=== PATIENT | male | born 1970 ===

== ENCOUNTER 2021-10-27 18:50 | Emergency (ER) | payer SELFPAY ==
[2021-10-27 18:56] VITALS: BP 131/84
[2021-10-27] MEDS ORDERED: ACETAMINOPHEN 325 MG TAB PO ONE (18:58)
--- NOTE | 2021-10-27 19:40 | Emergency Department Report ---
HPI - General Chief Complaint: Pain General Time Seen by Provider: 10/27/21 19:04 - HPI HPI: MSE 5 The patient is a 50-year-old male present with chief complaint of cold symptoms and body aches. For the past week the patient is rhinorrhea, nasal congestion and occasional cough. Yesterday patient developed body aches and bilateral ear pain. Patient denies loss of sense of smell or taste. Patient has been vaccinated against Covid receiving his second Pfizer vaccine approximately 3 months ago. When asked if there have been any sick contacts family member states that her youngest child received a vaccination for Covid and then developed similar symptoms that is the only known "sick contact." ED Past Medical Hx - Past Medical History Previous Medical History?: No - Surgical History Past Surgical History?: No - Family History Family history: no significant - Social History Smoking Status: Never Smoker Substance Use Type: None (Denies illicit drug use), Alcohol (Rarely) - Medications Home Medications: Home Medications Medication Instructions Recorded Confirmed Last Taken Type Cyclobenzaprine [Flexeril] 10 mg PO TID PRN #10 tablet 10/27/21 Unknown Rx Ibuprofen [Motrin 800 MG tab] 800 mg PO Q8HR PRN #20 tablet 10/27/21 Unknown Rx Oxymetazoline 0.05% [Vicks Sinex] 1 spray NS Q12H #1 bottle 10/27/21 Unknown Rx ED Review of Systems ROS: Stated complaint: BODYACHES AND PAIN Other details as noted in HPI Constitutional: no symptoms reported Eyes: denies: eye pain ENT: ear pain Respiratory: cough Cardiovascular: as per HPI Endocrine: no symptoms reported Gastrointestinal: denies: abdominal pain Genitourinary: denies: dysuria Musculoskeletal: myalgia Neurological: headache Physical Exam - Physical Exam Vital Signs: Vital Signs 10/27/21 18:55 Temperature 100.6 F H Pulse Rate 102 H Respiratory 20 Rate Blood Pressure 131/84 [Right] O2 Sat by Pulse 97 Oximetry Physical Exam: GENERAL: The patient is well-developed well-nourished male sitting on stretcher not appearing to be in acute distress. [] HEENT: Normocephalic. Atraumatic. Extraocular motions are intact. Patient has moist mucous membranes. TMs clear bilateral NECK: Supple. No meningitic signs are noted. Trachea midline CHEST/LUNGS: Clear to auscultation. There is no respiratory distress noted. HEART/CARDIOVASCULAR: Regular. There is no tachycardia. There is no gallop rub or murmur. ABDOMEN: Abdomen is soft, nontender. Patient has normal bowel sounds. There is no abdominal distention. SKIN: There is no rash. There is no edema. There is no diaphoresis. NEURO: The patient is awake, alert, and oriented. The patient is cooperative. The patient has no focal neurologic deficits. The patient has normal speech. GCS 15 MUSCULOSKELETAL: There is no evidence of acute injury. ED Course Vital Signs 10/27/21 18:55 Temperature 100.6 F H Pulse Rate 102 H Respiratory 20 Rate Blood Pressure 131/84 [Right] O2 Sat by Pulse 97 Oximetry ED Medical Decision Making - Lab Data Laboratory Tests 10/27/21 Unknown Influenza A (Rapid) Positive A Influenza B (Rapid) Negative - Radiology Data Radiology results: report reviewed (Chest x-ray), image reviewed (Chest x-ray) interpreted by me: Chest x-ray-no definite focal infiltrates, no pneumothorax [facility] [address] [place] [address] XRay Report Signed Patient: REFUGIO ALEXANDER MR#: [id number] : 1970 Acct:[id number] Age/Sex: 50 / M ADM Date: 10/27/21 Loc: ED Attending Dr: Ordering Physician: ROCHELLE LONG Date of Service: 10/27/21 Procedure(s): XR chest routine 2V Accession Number(s): [id number] cc: ROCHELLE LONG Fluoro Time In Minutes: CHEST 2 VIEWS INDICATION / CLINICAL INFORMATION: fever, SOB. COMPARISON: None available. FINDINGS: SUPPORT DEVICES: None. HEART / MEDIASTINUM: No significant abnormality. LUNGS / PLEURA: No significant pulmonary or pleural abnormality. No pneumothorax. ADDITIONAL FINDINGS: No significant additional findings. IMPRESSION: 1. No acute findings. Signer Name: Carlos Martinez MD Signed: 10/27/2021 8:10 PM Workstation Name: [id number] Transcribed By: DB Dictated By: CARLOS MARTINEZ MD Electronically Authenticated By: CARLOS MARTINEZ MD Signed Date/Time: 10/27/212009 DD/ 08 TD/TT: Print Cancel - Medical Decision Making 2-minute walking SPO2 98% on room air - Differential Diagnosis URI, pneumonia, bronchitis, influenza Critical care attestation.: If time is entered above; I have spent that time in minutes in the direct care of this critically ill patient, excluding procedure time. ED Disposition Clinical Impression: Influenza Disposition: 01 HOME / SELF CARE / HOMELESS Is pt being admited?: No Does the pt Need Aspirin: No Condition: Stable Instructions: Influenza, Adult, [id number] Additional Instructions: Return to the emergency department should you develop worsening symptoms, inability to tolerate food or liquids, high fever or any other concerns Prescriptions: Cyclobenzaprine [Flexeril] 10 mg PO TID PRN #10 tablet PRN Reason: Muscle Spasm Ibuprofen [Motrin 800 MG tab] 800 mg PO Q8HR PRN #20 tablet PRN Reason: Pain, Moderate (4-6) Oxymetazoline 0.05% [Vicks Sinex] 1 spray NS Q12H #1 bottle Referrals: [facility] [Provider Group] - 3-5 Days Time of Disposition: 20:19
--- NOTE | 2021-10-27 20:14 | XRay Report ---
CHEST 2 VIEWS INDICATION / CLINICAL INFORMATION: fever, SOB. COMPARISON: None available. FINDINGS: SUPPORT DEVICES: None. HEART / MEDIASTINUM: No significant abnormality. LUNGS / PLEURA: No significant pulmonary or pleural abnormality. No pneumothorax. ADDITIONAL FINDINGS: No significant additional findings. IMPRESSION: 1. No acute findings. Signer Name: Aaron Martinez MD Signed: 10/27/2021 8:10 PM Workstation Name: [id number]
== END 2021-10-27 21:45 | disposition home or self-care (01) ==
LOC: ED 18:50
DX: J11.1 Influenza due to unidentified influenza virus with other respiratory manifestations (principal); Z72.89 Other problems related to lifestyle; Z88.0 Allergy status to penicillin; Z79.899 Other long term (current) drug therapy
CPT/HCPCS: 71046; 87400; 99284